=== PATIENT | female | born 1960 | race Caucasian/White ===

== ENCOUNTER 2019-04-03 07:33 | Outpatient (CLI) | payer OTHER, SELFPAY ==
[2019-04-03 08:55] LABS: HCT 36.3 % (36.0-46.0); HGB 12.4 g/dL (12.0-15.5)
== END 2019-04-03 07:53 | disposition home or self-care (01) ==
PROVIDERS: Visit Provider Obstetrics & Gynecology
DX: R19.09 Other intra-abdominal and pelvic swelling, mass and lump (principal); Z01.818 Encounter for other preprocedural examination
CPT/HCPCS: 36415; 86850; 86900; 86901; 85014; 85018

== ENCOUNTER 2019-04-04 08:41 | Day surgery (SDC) | payer OTHER, SELFPAY ==
[2019-04-04] VITALS (9 sets, daily range): BP systolic 94–140; BP diastolic 55–90; PULSE 57–72; RESP 14–19; TEMP 36.1–36.6; O2SAT 96–100
[2019-04-04] MEDS: Lactated Ringers 1,000 ML 125 ML IV ×3 (09:55→14:03)
--- NOTE | 2019-04-04 13:33 | PAPNONF_PTH ---
PATIENT: TISH SEAY LOC: [facility] U#:[id number] AGE/SX: 59/F ROOM: RE04/04/[address]: Gabrielle Pisano MD : 1960 BED: DIS: 04/04/2019 SPEC #: [id number] RECD: 04/04/19 17:36 STATUS: MARLENA RELazaro #: [id number] SARAH: 04/04/19 13:[address]: Gabrielle Pisano DEPT: [facility] Cytology RECD BY: Tamela Wilkerson ENTERED: 04/04/19 17:36 SP TYPE: ONEIDA LOPEZ DR: None Tissues: 1 - BODY FLUID CYTO(NOT S/U/N/EM)[facility] Procedures: BODY FLUID CYTO(NOT SPU/UR/NIP/ENDOM)[facility] Comments: [id number] (TOTAL VOLUME = 20 ml's) (20 ml's PERITONEAL WASHINGS & 20 ml'S CYTOLYTE ADDED)
--- NOTE | 2019-04-04 13:33 | OVAR_PTH ---
PATIENT: TISH SEAY LOC: [facility] U#:[id number] AGE/SX: 59/F ROOM: RE04/04/[address]: Gabrielle Pisano MD : 1960 BED: DIS: 04/04/2019 SPEC #: [id number] RECD: 04/04/19 17:22 STATUS: MARLENA REQ #: [id number] SARAH: 04/04/19 13:[address]: Gabrielle Pisano DEPT: Surgical Specimen RECD BY: Tamela Wilkerson ENTERED: 04/04/19 17:23 SP TYPE: KALYANI LOPEZ DR: None Tissues: 1 - OVARY NOT TUMOR W OR W/O TUBES 2 - OVARY NOT TUMOR W OR W/O TUBES Procedures: GROSS AND MICRO LEVEL 4 Comments: [id number]
[2019-04-04] MEDS: Bupivacaine 0.5% Pres-Free 30 ML VIAL (14:03)
--- NOTE | 2019-04-05 13:22 | ROE_ITS ---
REPORT OF OPERATIVE PROCEDURE DATE OF PROCEDURE April 04, 2019 PREOPERATIVE DIAGNOSIS Right complex ovarian cyst. POSTOPERATIVE DIAGNOSIS Right complex ovarian cyst. PROCEDURE Laparoscopic bilateral salpingo-oophorectomy. SURGEON Gabrielle Pisano M.D. [employer] Jordana Mcclendon M.D. ANESTHESIA General. COMPLICATIONS None. ESTIMATED BLOOD LOSS Less than 25 cc. FLUIDS 1100 cc LR. FINDINGS Large 6 to 7 cm right ovarian cyst. Normal left ovary. Normal tubes bilaterally. PROCEDURE DESCRIPTION The patient was taken to the Operating Room, where she was properly identified. She was then placed on the Operating Table in a dorsal supine position. General anesthesia was induced without difficult y. SCDs boots were applied. The patient was placed in the dorsal lithotomy position, and prepped and draped in a normal sterile fashion. A formal time-out procedure was then performed, confirming patie nt and procedure with all personnel present. Her bladder was drained for 150 cc of clear urine. A bivalved speculum was placed. The cervix was visualized, grasped on the lip with a single-tooth ten aculum. A boarding pass uterine manipulator was advanced without difficulty. The speculum and single-tooth tenaculum was removed. The surgeon changed her gloves and attention was then turned to the abdomen wh ere an infraumbilical injection of 0.25% strength Marcaine was made along the prior laparoscopic scar . This was incised to 5 mm. The Veress needle was inserted. Intraperitoneal location was confirmed with a fluid-filled syringe an d a dropping pressure. The abdomen was then insufflated with CO2 gas. The Veress needle removed, and the 5-mm port advanced under direct visualization. Attention was then turned to the placement of the right and left lower ports. First, the area along t he lateral aspects of the prior scar were injected with 0.25 strength Marcaine. On the righ t, a 5-mm subcuticular incision was made and the 5-mm port was advanced under direct visualization. O n the left, a 12-mm subcuticular incision was made and a 12-mm port advanced under direct visualizati on. The patient was placed in Trendelenburg position. Ureters were identified bilaterally along their course on the pelvic side wall. Attention was turned first to the right tube and ovary. The tube and ovary were identified. The fimbr iated end of the fallopian tube was then grasped using bipolar cautery. The tube was cauterized and c ut along the mesosalpinx. The IP was then identified. The IP ligament was cauterized x3 and cut, and the uterine ovarian ligame nt on its proximal end was cross clamped, cauterized and cut. The ovary and tube was then placed in t he posterior cul-de-sac while attention was turned to the left tube and ovary. The tube was grasped a t the fimbriated end. The tube was incised along the mesosalpinx. IP ligament was identified, cauteri zed x3 and cut. The tube and uterine ovarian ligament were then ligated at the proximal cornual regio n of the uterus by cauterizing x2 and cut. The left ovary was removed to through the 12-mm port. The right ovary was removed by placing the Endo Catch bag through the 12-mm port placing the tube and ovary inside the bag, bringing it to the subfas cial layer, and draining the cyst with a [place] needle and removing the tube and ovary to through the 12-mm fascial incision. The pelvis was then inspected and found to hemostatic. The abdomen was desufflated and off pressure. Hemostasis was reconfirmed. All the ports were removed. The 12-mm port site fascia was closed with 0- Vicryl in two interrupted sutures. The skin was closed with #4-0 Monocryl in a subcuticular fashion. 2x2s and Tegaderm was applied over the incisions. The [place] clip was removed. Sponge, lap, needle and instrument counts were correct x2 and the patient was taken to the Recovery Room in stable condition . CC: [facility]
== END 2019-04-04 17:30 | disposition home or self-care (01) ==
PROVIDERS: Visit Provider Obstetrics & Gynecology
PROC: (CPT 58661; principal; 2019-04-04 10:30)
DX: N83.291 Other ovarian cyst, right side (principal); N83.8 Other noninflammatory disorders of ovary, fallopian tube and broad ligament; Z98.51 Tubal ligation status; K21.9 Gastro-esophageal reflux disease without esophagitis
CPT/HCPCS: 58661; 88305; 88104; J0131; J1100; J1885; J2250; J2405; J3010

== ENCOUNTER 2019-04-24 13:25 | Outpatient (REF) | payer OTHER, SELFPAY | END 2019-04-24 13:45 | LOC: LBN 13:25 | PROVIDERS: Visit Provider Obstetrics & Gynecology | DX: R32 Unspecified urinary incontinence (principal) | CPT/HCPCS: 87086 ==

== ENCOUNTER 2023-04-27 15:54 | Outpatient (REF) | payer OTHER, SELFPAY ==
--- NOTE | 2023-04-27 15:20 | TONG_PTH ---
PATIENT: TISH SEAY LOC: [facility] U#:[id number] AGE/SX: 63/F ROOM: RE04/27/[address]: Natalya Park : 1960 BED: DIS: 04/27/2023 SPEC #: [id number] RECD: 04/28/23 12:42 STATUS: MARLENA SADLER #: [id number] SARAH: 04/27/23 15:[address]: Natalya Park DEPT: Surgical Specimen RECD BY: Tamela Wilkerson ENTERED: 04/28/23 12:43 SP TYPE: KALIA LOPEZ DR: Rox Freitas Tissues: 1 - TONSIL BIOPSY Procedures: GROSS AND MICRO LEVEL 4 Comments: [id number]
== END 2023-04-27 15:55 | disposition home or self-care (01) ==
LOC: LBN 15:54
PROVIDERS: PCP Internal Medicine; Visit Provider Registered Nurse Maternal Newborn
DX: D10.1 Benign neoplasm of tongue (principal); K14.5 Plicated tongue; Z87.891 Personal history of nicotine dependence
CPT/HCPCS: 88305